=== PATIENT | female | born 1980 | race African-American/Black ===

== ENCOUNTER 2018-03-14 11:12 | Emergency (ER) | payer MEDICAID ==
[~2018-03-14] VITALS: Ht 180.3 cm; Wt 106.5 kg
[2018-03-14 11:14] VITALS: BP 125/80
== END 2018-03-14 11:36 | disposition home or self-care (01) ==
LOC: ED 11:15
DX: K08.89 Other specified disorders of teeth and supporting structures (principal)
CPT/HCPCS: 99283